=== PATIENT | female | born 1965 | race Caucasian/White ===

== ENCOUNTER 2022-05-22 10:22 | Outpatient (CLI) | payer OTHER, SELFPAY ==
[2022-05-22 17:41] LABS: Chloride* 108 mmol/L (96-114)
[2022-05-22 17:42] LABS: Potassium* 4.5 mmol/L (3.6-5.1); Sodium* 137 mmol/L (135-149)
[2022-05-22 17:44] LABS: Cholesterol* 208 mg/dL (90-199); Creatinine* 0.9 mg/dL (0.5-1.5); Estimated Glomerular Filt Rate 73.64
[2022-05-22 17:45] LABS: Blood Urea Nitrogen* 24 mg/dL (7-30); Calcium* 9.5 mg/dL (8.4-10.6); Carbon Dioxide* 24 mmol/L (20-32); Glucose* 127 mg/dL (60-115); Triglycerides* 203 mg/dL (40-149)
[2022-05-22 17:46] LABS: HDL Cholesterol* 49 mg/dL (>=50); LDL Cholesterol Calculated 118 mg/dL (<100)
== END 2022-05-22 10:23 | disposition home or self-care (01) ==
PROVIDERS: PCP Family Medicine; Visit Provider Family Medicine
DX: E11.9 Type 2 diabetes mellitus without complications (principal); I10 Essential (primary) hypertension; E55.9 Vitamin D deficiency, unspecified; K21.9 Gastro-esophageal reflux disease without esophagitis
CPT/HCPCS: 80048; 80061

== ENCOUNTER 2022-07-29 08:00 | Outpatient (CLI) | payer OTHER, SELFPAY ==
--- OUTSIDE RECORDS SUMMARY | 2022-07-29 08:10 | XMS_ITS | Clinical Summary ---
:1965 Author Organization [employer] 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 LORazepam (ATIVAN) 0.5 TAKE ONE TABLET 30 tablet 0 07/02/2018 Active mg tabIndications: BY MOUTH EVERY 6 Wheezing HOURS IF NEEDED FOR ANXIETY cholecalciferol, Take 1 tablet by 0 08/10/2020 Active Vitamin D3, 5,000 unit mouth once daily. tab tablet albuterol HFA 90 Inhale 1-2 Puffs 1 Inhaler 11 08/10/2020 Active mcg/actuation by mouth every 4 inhalerIndications: hours if needed. Seasonal allergies furosemide (LASIX) 40 Take 0.5 tablets 45 tablet 3 08/10/2020 Active mg tabletIndications: by mouth every Hypertension morning. lisinopril-hydrochloro Take 0.5 tablets 45 tablet 3 08/10/2020 Active thiazide, 20-25 mg, by mouth once (PRINZIDE, ZESTORETIC) daily. 20-25 mg per tabletIndications: Hypertension Apple Cider Vinegar Take by mouth. 0 11/17/2020 Active 600 mg cap metFORMIN (GLUCOPHAGE) Take 2 tablets by 120 tablet 0 12/28/19 21 Active 500 mg mouth 2 times tabletIndications: daily with meals. Controlled type 2 diabetes mellitus without complication, without long-term current use of insulin (HC) Active Problems Problem Noted Date Controlled type 2 diabetes mellitus without complicati on, without 08/21/2020 long-term current use of insulin Loss of voice 09/08/2014 Bilateral pneumonia 09/05/2014 Wheezing 09/05/2014 ACL (anterior cruciate ligament) tear 10/19/2013 Menorrhagia 08/27/2013 Venous insufficiency 07/30/2012 Raynaud's phenomenon 07/30/2012 Vitamin D deficiency 05/05/2011 Hypertension 04/30/2010 ALLERGIC RHINITIS GERD Migraine, unspecified, without mention of intractable migraine without mention of status migrainosus Obsessive-compulsive disorders Encounters Date Type Specialty Care Team Description 05/20/2022 Refill Leyla Rush NP Refill Request (metFORMIN (GLUCOPHAGE) 50 0 mg tablet) from Last 3 Months Immunizations Name Administration Dates Next Due Tdap 04/25/2009 Family History Medical History Relation Name Comments Diabetes Brother Diabetes Maternal Grandfather Heart Disease Maternal Grandfather Hypertension Maternal Grandfather Cancer-breast Maternal Grandmother Diabetes Mother Heart Disease Mother Hypertension Mother Relation Name Status Comments Brother Father Maternal Grandfather Maternal Grandmother Mother Social History Tobacco Use Types Packs/Day Years Used Date Former Smoker Quit: 02/04/20 11 Smokeless Tobacco: Never Used Tobacco Cessation: Counseling Given: Yes Alcohol Use Standard Drinks/Week Comments Yes 0 (1 standard drink = 0.6 oz pure social , one time every three months alcohol) Alcohol Habits Answer Date Recorded How often do you have a drink 2-4 times a month 06/10/2019 containing alcohol? How many drinks containing alcohol do 1 or 2 you have on a typical day when you are drinking? How often do you have six or more Never 2018 drinks on one occasion? Comment: social, one time every three 09/05/2014 months Sex Assigned at Date Recorded Not on file Obstetrics History Last Filed Vital Signs Vital Sign Reading Time Taken Comments Blood Pressure 127/79 11/17/2020 1:09 PM SAMPLE SELECTOR Pulse 89 11/17/2020 1:09 PM SAMPLE SELECTOR Temperature 36.9 ??C (98.4 ??F) 11/17/2020 1:09 PM SAMPLE SELECTOR Respiratory Rate 16 11/17/2020 1:09 PM SAMPLE SELECTOR Oxygen Saturation 99% 11/17/2020 1:09 PM SAMPLE SELECTOR Inhaled Oxygen Concentration - - Weight 88.9 kg (196 lb) 11/17/2020 1:09 PM SAMPLE SELECTOR Height 158.8 cm (5' 2.5) 08/10/2020 8:43 AM CDT Body Mass Index 35.28 08/10/2020 8:43 AM CDT Plan of Treatment Health Maintenance Due Date Last Done Comments COVID-19 vaccine series (#1) 1965 Pneumococcal series for age 19-64 1969 (1 - PCV) Colonoscopy through age 75 02/10/2008 Zoster (shingles) series for age 0402/09/2013 50+ (1 of 2) Mammogram for age 45-75 06/28/2016 06/28/2015, 05/19/2014, 05/07/2013, Additional history exists Tetanus booster 04/25/2019 04/25/2009 Depression screening for age 12+ 06/10/2020 06/10/2019, BMI (ht and wt on same day) for 08/10/2021 08/10/2020, 08/0 11/2018, age 18+ 08/01/2017 Influenza for age 50-64 07/11/2022 Lipids for age 45-75 08/01/2022 08/01/2017, 06/28/2015, 05/25/2014, Additional history exists Pap test for age 21-65 08/10/2023 08/10/2020, 05/20/2013, 04/27/2010, Additional history exists Tdap Completed 04/25/2009 Hepatitis C screening for age Completed 05/25/2014 18-79 Results Not on filefrom Last 3 Months Insurance Payer Benefit Plan / Subscriber ID Effective Dates Phone Addre ss Type Group [employer] [id number] 2020-Present [address] [place] [address] [employer] OF [id number] 2014-Present [address] [place] [address] (Home) [place] [phone] (Work) [place] Motor Vehicle Self 1965 [address] (Home) [place] [id number] [place] Personal/Family Self [address] (Home) [place] [phone] (Work) Advance Directives Documents on File Type Date Recorded Patient [employer] Operator Explanati on Healthcare Directive 09/11/2021 09/11/2021 Latest Code Status on File Code Status Date Activated Date Inactivated Comments Full Code 09/05/2014 8:47 AM 09/08/2014 2:52 PM Care Teams Assistant Professor Of Philosophy Relationship Specialty Start Date End Date Unknown, Doctor PCP - General 05/28/22 .
--- NOTE | 2022-07-29 08:15 | CRLHL7_ITS ---
For Patients: As a result of the Century Cures Act, medical imaging exams and procedure reports are released immediately into your electronic medical record. You may view this report before your referring provider. If you have questions, please contact your health care provider. BILATERAL SCREENING MAMMOGRAM WITH COMPUTER-AIDED DETECTION TECHNIQUE: CC and MLO views were obtained. These mammographic images have been obtained using full-field digital technique. These mammographic images were interpreted with the benefit of computer-aided detection. COMPARISON FILM: 06/28/15, 05/19/14. FINDINGS: There are scattered areas of fibroglandular density IMPRESSION: There is no radiographic evidence for malignancy. ASSESSMENT: BI-RADS Category 1: Negative RECOMMENDATION: Routine screening mammogram in 1 year. A lay language report of this examination will be provided to the patient. Dominguez Pardo M.D. Diagnostic Radiologist [email or web address] ZACK/Dictated by: Dominguez Pardo MD @ 07/30/2022 8:52:00 AM (Electronically Signed)
== END 2022-07-29 08:01 | disposition home or self-care (01) ==
LOC: MAMMO 08:01
PROVIDERS: PCP Family Medicine; Visit Provider Family Medicine
DX: Z12.31 Encounter for screening mammogram for malignant neoplasm of breast (principal)
CPT/HCPCS: 77067

== ENCOUNTER 2024-03-01 13:27 | Outpatient (CLI) | payer OTHER, SELFPAY ==
--- NOTE | 2024-03-01 13:20 | MM_ITS ---
Patient: HARRY CARSON Facility:?[facility] Patient ID:?[id number] Site Patient ID:?[id number]. Site :?1965 Study:?XRay-Breast Bilateral 3D W/CAD-03/01/2024 2:14:21 PM Ordering Physician:Lea Ghosh Final Report: BILATERAL SCREENING MAMMOGRAM WITH COMPUTER-AIDED DETECTION AND TOMOSYNTHESIS TECHNIQUE: CC and MLO views were obtained. These mammographic images have been obtained using full-field digital technique. These mammographic images were interpreted with the benefit of computer-aided detection. Breast tomosynthesis was used in this interpretation. COMPARISON FILM: 07/29/22, 06/28/15, 05/19/14. FINDINGS: There are scattered areas of fibroglandular density. IMPRESSION: There is no radiographic evidence for malignancy. ASSESSMENT: BI-RADS Category 1: Negative RECOMMENDATION: Routine screening mammogram in 1 year. A lay language report of this examination will be provided to the patient. LEA RYAN M.D. Diagnostic Radiologist [email or web address] EUSEBIO/celia D& Transcribed: 2:[address]/Dictated by: Lea Ryan MD @ 03/02/2024 12:29:00 PM Signed by:?Lea Ryan MD @03/02/2024 9:34:33 PM (Electronic Signature)
--- OUTSIDE RECORDS SUMMARY | 2024-03-01 13:30 | XMS_ITS | Clinical Summary ---
Author Name Unknown Organization [employer] [facility] [facility] Address [place], [place] [address] Care Team Providers Care Manager Transfer Name Role Phone Unknown, Doctor Primary Care Provider Unavailabl e Allergies Active Allergy Reactions Criticality Noted Date Comments Adhesive Rash 08/25/2013 Phenylbutazone Rash 02/03/2007 Venom-Honey Bee Anaphylaxis High 03/05/2012 Allergic all bees wasps and hornets Medications Medication Sig Dispensed Refills Start Date End Date Status cetirizine (ZYRTEC) 10 mg tablet Take 1 tablet by mouth once daily. 0 06/28/2015 Active LORazepam (ATIVAN) 0.5 mg tabIndications:Wheez ing TAKE ONE TABLET BY MOUTH EVERY 6 HOURS IF NEEDED FOR ANXIETY 30 tablet 07/02/2018 Active cholecalciferol, Vitamin D3, 5,000 unit tab tablet Take 1 tablet by mouth once daily. 0 08/10/2020 Active albuterol HFA 90 mcg/actuation inhalerIndications:S easonal allergies Inhale 1-2 Puffs by mouth every 4 hours if needed. 1 Inhaler 11 08/10/2020 Active furosemide (LASIX) 40 mg tabletIndications:Hy pertension Take 0.5 tablets by mouth every morning. 45 tablet 3 08/10/2020 Active lisinopril-hydrochlo rothiazide, 20-25 mg, (PRINZIDE, ZESTORETIC) 20-25 mg per tabletIndications:Hy pertension Take 0.5 tablets by mouth once daily. 45 tablet 3 08/10/2020 Active Apple Cider Vinegar 600 mg cap Take by mouth. 0 11/17/2020 Active metFORMIN (GLUCOPHAGE) 500 mg tabletIndications:Co ntrolled type 2 diabetes mellitus without complication, without long-term current use of insulin (HC) Take 2 tablets by mouth 2 times daily with meals. 120 tablet 12/28/2020 Active Active Problems Problem Noted Date Diagnosed Date Controlled type 2 diabetes m ellitus without complication, without long-term current use of insulin 08/21/2020 Loss of voice 09/08/2014 Bilateral pneumonia 09/05/2014 Wheezing 09/05/2014 ACL (anterior cruciate ligament) tear 10/19/2013 Menorrhagia 08/27/2013 Venous insufficiency 07/30/2012 Raynaud's phenomenon 07/30/2012 Vitamin D deficiency 05/05/2011 Hypertension 04/30/2010 ALLERGIC RHINITIS GERD Migraine, unspecified, witho ut mention of intractable migraine without mention of status migrainosus Obsessive-compulsive disorders Immunizations Name Administration Dates Next Due Tdap 04/25/2009 Family History Medical History Relation Name Comments Diabetes Brother Diabetes Maternal Grandfather Heart Disease Maternal Grandfather Hypertension Maternal Grandfather Cancer-breast Maternal Grandmother Diabetes Mother Heart Disease Mother Hypertension Mother Relation Name Status Comments Brother Father Maternal Grandfather Maternal Grandmother Mother Social History Tobacco Use Types Packs/Day Years Used Date Smoking Tobacco: Former Cigarettes Q uit: 02/03/2011 Smokeless Tobacco: Never Tobacco Cessation:Counseling Given: Yes Alcohol Use Standard Drinks/Week Comments Yes 0 (1 standard drink = 0.6 oz pure alcohol) social, one time every three months PHQ-2 Answer Date Recorded PHQ-2 Score 0 06/10/2019 Social Connections Answer Date Recorded Frequency of Communication with Friends and Fami ly Not on file 11/10/2021 Financial Resource Strain Answer Date R ecorded Difficulty of Paying Living Expenses Not on file 11/10/2021 Difficulty of Paying Living Expenses Not on file 11/10/2021 Sex and Gender Information Value Date Recorded Sex Assigned at Not on file Gender Identity Not on file Sexual Orientation Not on file Obstetrics History Last Filed Vital Signs Vital Sign Reading Time Taken Comments Blood Pressure 127/79 11/17/2020 1:09 PM ENTERPRISE BUSINESS ARCHITECT Pulse 89 11/17/2020 1:09 PM ENTERPRISE BUSINESS ARCHITECT Temperature 36.9 ??C (98.4 ??F) 11/17/2020 1:09 PM CS T Respiratory Rate 16 11/17/2020 1:09 PM ENTERPRISE BUSINESS ARCHITECT Oxygen Saturation 99% 11/17/2020 1:09 PM ENTERPRISE BUSINESS ARCHITECT Inhaled Oxygen Concentration - - Weight 88.9 kg (196 lb) 11/17/2020 1:09 PM ENTERPRISE BUSINESS ARCHITECT Height 158.8 cm (5' 2.5) 08/10/2020 8:43 AM CDT Body Mass Index 35.28 08/10/2020 8:43 AM CDT Plan of Treatment Health Maintenance Due Date Last Done Comments HIV for age 15-65 1978 Colonoscopy through age 75 02/10/2008 Zoster (shingles) series for age 50+ (1 of 2) 2013 Mammogram for age 45-75 06/28/2016 06/28/20 15, 05/19/2014, 05/07/2013, Additional history exists Tetanus booster 04/25/2019 04/25/2009 Depression screening for age 12+ 06/10/2020 06/10/2019, 08/01/2017 BMI (ht and wt on same day) for age 18+ 08/10/2021 08/10/2020, 06/10/2019, 08/01/2017 Lipids for age 45-75 08/01/2022 08/01/2017, 06/28/2015, 05/25/2014, Additional history exists COVID-19 vaccine series (2022-24 season) 2023 Influenza for age 50-64 07/11/2024 Pap test for age 21-65 11/19/2025 3, 08/10/2020, 05/20/2013, Additional history exists Tdap Completed 04/25/2009 Hepatitis C screening for age 18-79 Completed 05/25/2014 Pneumococcal series for age 6-64 Aged Out No longer eligible based on patient's age to complete this topic Procedures Procedure Name Priority Date/Time Associated Diagnosis Comments CUSTOMER RELATIONS COORDINATOR THIN PREP PAP SCREEN IMAGED Routine 11/19/2022 8:15 AM ENTERPRISE BUSINESS ARCHITECT LIPID PANEL W REFLEX MEASURED LDL Routine 08/01/2017 10:36 AM CDT Hypertension XR MAMMO BILAT SCREEN FFDM (IA) Routine 06/28/2015 9:01 AM CDT Other screening mammogram ANTI HCV Routine 05/25/2014 10:22 AM CDT Need for hepatitis C screening test from Last 3 Months or Most Recently Relevant to Health Maintenance Results * CUSTOMER RELATIONS COORDINATOR THIN PREP PAP SCREEN IMAGED (11/19/2022 8:15 AM ENTERPRISE BUSINESS ARCHITECT) Case Report Gynecologic Cytology Report ? Case: [id number] ? Authorizing Provider: ??Dominguez Mcmillan MD ??Collected: ? 11/19/2022 0815 ? Ordering Location: ? [facility] ?Received: ?11/21/2022 1627 ? First Screen: ?Sisi Sommers ? Specimen: ?CUSTOMER RELATIONS COORDINATOR ThinPrep Vial Screening, Cervical/Vaginal ? 11/28/2022 2:04 PM ENTERPRISE BUSINESS ARCHITECT [facility] INTERPRETATION/ RESULT NEGATIVE FOR INTRAEPITHELIAL LESION OR MALIGNANCY (NIL) (none) 11/28/2022 2:04 PM ENTERPRISE BUSINESS ARCHITECT [id number] IMEN ADEQUACY Satisfactory for evaluation No endocervical component seen 11/28/2022 2:04 PM ENTERPRISE BUSINESS ARCHITECT [facility] HPV REQUEST HPV if ASCUS 11/28/2022 2:04 PM ENTERPRISE BUSINESS ARCHITECT [facility] Last Pap Result NIL 3 2:04 PM [facility] Menstrual Status Postmenopausal 11/28/2022 2:04 PM ENTERPRISE BUSINESS ARCHITECT [facility] Additional Information 11/28/2022 2:04 PM [facility] Comment: Interpreted at [facility] - [address] [place] [id number] Automated Review Successful 11/28/2022 2:[address] [facility] Comment:Specimen processed s uccessfully by automated pastry decorator device, ThinPrep Imaging System, [employer] Note The pap test is a screening technique, not a diagnostic procedure. It is used primarily to screen for squamous cancers and precursor lesions. Published studies have shown that it is subject to both false negative and false positive results. The pap test should not be used as the sole means to diagnose or exclude pre-malignant and malignant lesions. 11/28/2022 2:[address] [facility] Other (Cervical/Vagina l) 11/19/2022 8:15 AM ENTERPRISE BUSINESS ARCHITECT 11/21/2022 4:27 PM ENTERPRISE BUSINESS ARCHITECT Dominguez Mcmillan MD PATHOLOGY/[facility] [address] [place] [address], [place] * (ABNORMAL) LIPID PANEL W REFLEX MEASURED LDL (08/01/2017 10:36 AM CDT) CHOLESTEROL,TOTAL 228(H) 100 - 199 mg/dL 08/01/2017 11:43 AM CDT [facility] TRIGLYCERIDES 245(H) <150 mg/dL 08/01/2017 11:43 AM CDT [facility] HDL CHOLESTEROL 43 >40 mg/dL 7 11:43 AM CDT [facility] NON-HDL CHOLESTEROL 185(H) <145 mg/dl 08/01/2017 11:43 AM CDT [facility] CHOL/HDL RATIO 5.30(H) <4.50 08/01/2017 11:43 AM CDT [facility] LDL CHOLESTEROL 136(H) <=130 mg/dL 08/01/2017 11:43 AM CDT [facility] PROVIDER ORDERED STATUS RANDOM 08/01/2017 11:43 AM CDT [facility] Blood BLOOD SPECIMEN / Unknown Venipuncture / Unknown 08/01/2017 10:36 AM CDT 08/01/2017 10:36 AM CDT Dominguez Mcmillan MD CHEMISTRY [facility] [address] [place] [address] * XR MAMMO BILAT SCREEN FFDM (06/28/2015 9:01 AM CDT) Anatomical Region Laterality Modality BREASTS, Breast Left, Breast Right Bilateral Mammography Impressions 06/28/2015 11:35 AM CDT ??There is no radiographic evidence for malignancy. ??Recommend annual mammograms. A lay language report of this examination will be provided to the patient. MAMMOGRAM ASSESSMENT: ??ACR 1 Negative Narrative 06/28/2015 11:35 AM CDT XR MAMMO BILAT SCREEN FFDM [G0202.0] CLINICAL HISTORY: ??This is an asymptomatic 50 y.o. patient. INDICATION FOR EXAM: Mammogram Screening. TECHNIQUE: CC & MLO views were obtained. ??This digital study was evaluated with the assistance of Computer-Aided Detection. COMPARISON FILM: Yes 05/19/14 [facility] FINDINGS: ??Mammographically, the breast tissue has scattered fibroglandular densities. ??There are no dominant masses, suspicious micro calcifications or areas of architectural distortion. Dominguez Mcmillan MD MAMMO * ANTI HCV [07487.2] (05/25/2014 10:22 AM CDT) HEPATITIS C ANTIBODY Non-Reacti ve Non-Reacti ve 05/25/2014 8:14 PM CDT [facility] Blood specimen (specimen) BLOOD SPECIMEN / Unknown Venipuncture / Unknown 05/25/2014 10:22 AM CDT 05/25/2014 10:22 AM CDT Narrative [facility] - 05/25/2014 8:14 PM CDT Antibodies to HCV not detected; does not exclude the possibility of exposure to HCV. Dominguez Mcmillan MD SEND OUTS [facility] LAB[facility]ORY [address] [place] [address], from Last 3 Months or Most Recently Relevant to Health Maintenance Advance Directives Documents on File Type Date Recorded Patient Macroeconomics Professor Expl anation Healthcare Directive 09/11/2021 021 * Full Code (Latest Code Status on File) Date Activated Date Inactivated Comments 09/05/2014 8:47 AM 09/08/2014 2:52 PM Care Teams Manager Transfer Relationship Specialty Start Date End Date Unknown, Doctor . PCP - General 05/28/22
== END 2024-03-01 13:28 | disposition home or self-care (01) ==
LOC: MAMMO 13:28
PROVIDERS: PCP Family Medicine; Visit Provider Family Medicine
DX: Z12.31 Encounter for screening mammogram for malignant neoplasm of breast (principal); E11.9 Type 2 diabetes mellitus without complications; I10 Essential (primary) hypertension; E55.9 Vitamin D deficiency, unspecified; Z79.4 Long term (current) use of insulin
CPT/HCPCS: 77063; 77067; 80048; 80061; 82306; 85025

== ENCOUNTER 2025-03-16 08:29 | Outpatient (CLI) | payer OTHER, SELFPAY | END 2025-03-16 08:30 | disposition home or self-care (01) | LOC: FBOREF 08:29 | PROVIDERS: PCP Family Medicine; Visit Provider Family Medicine | DX: E11.42 Type 2 diabetes mellitus with diabetic polyneuropathy (principal); I10 Essential (primary) hypertension; Z79.84 Long term (current) use of oral hypoglycemic drugs | CPT/HCPCS: 80061 ==

== ENCOUNTER 2025-04-26 13:48 | Outpatient (CLI) | payer OTHER, SELFPAY ==
--- NOTE | 2025-04-26 14:00 | CRLHL7_ITS ---
For Patients: As a result of the Century Cures Act, medical imaging exams and procedure reports are released immediately into your electronic medical record. You may view this report before your referring provider. If you have questions, please contact your health care provider. INDICATION: BILATERAL SCREENING MAMMOGRAM, ASYMPTOMATIC 60 Y/O FEMALE COMPARISON: 03/01/2024, 07/29/2022, 06/28/2015 TECHNIQUE: Digital mammogram in CC and MLO projections including computer-aided detection (CAD) and tomosynthesis. BREAST COMPOSITION: There are scattered areas of fibroglandular density. FINDINGS: No suspicious findings. ASSESSMENT: BI-RADS 1 Negative RECOMMENDATION: Annual screening mammogram. A lay language report of this examination will be provided to the patient. Dictated by: Dominguez Pardo MD @ 04/27/2025 10:15:41 (Electronically Signed)
== END 2025-04-26 13:49 | disposition home or self-care (01) ==
LOC: MAMMO 13:49
PROVIDERS: PCP Family Medicine; Visit Provider Family Medicine
DX: Z12.31 Encounter for screening mammogram for malignant neoplasm of breast (principal)
CPT/HCPCS: 77063; 77067

== ENCOUNTER 2025-07-14 13:03 | Outpatient (CLI) | payer OTHER, SELFPAY ==
--- NOTE | 2025-07-14 13:30 | CRLHL7_ITS ---
For Patients: As a result of the Century Cures Act, medical imaging exams and procedure reports are released immediately into your electronic medical record. You may view this report before your referring provider. If you have questions, please contact your health care provider. DXA BONE MINERAL DENSITY STUDY Reason for exam: Menopausal and female climacteric states. Current height (in): 61. Weight (lb): 186. Menopause age: 50. Ethnicity: White. 1. Have you had a previous hip or vertebral fracture? No. 2. Have you had any fractures during your adult life which did not result from significant trauma (e.g., auto accident)? No. 3. Did either of your parents have a hip fracture? No. 4. Do you smoke? No. 5. Have you ever taken Glucocorticoids? Yes. 6. Do you have rheumatoid arthritis? No. 7. Do you have secondary osteoporosis? No. 8. Do you drink 3 or more alcoholic drinks per day? No. 9. Are you being treated for osteoporosis? No. 10. Have you ever taken any of the following medications: Actonel, Evista, Fosamax, Miacalcin, Reclast, Boniva, Forteo, HRT (i.e. estrogen/hormone therapy), Protelos, Prolia, Vitamin D, Calcium, other ??? please specify. ANSWER: Yes, calcium. 11. Do you have any of the following medical conditions: Anorexia or bulimia, asthma or emphysema, end stage renal disease, hyperparathyroidism, any seizure disorders, cancer, inflammatory bowel diseases, hysterectomy, other ??? please specify. ANSWER: No. 12. What was your maximum height (inches)? 61.5. 13. Do you perform weight bearing exercise regularly? No. 14. Do you regularly consume dairy products? No. 15. Do you drink caffeinated beverages? Yes. 16. At what age did your period start? 13. 17. Are you premenopausal? No. 18. How many full-term pregnancies have you had? 1. 19. Have you ever missed your period for more than 6 months in a row (not including or menopause)? No. TECHNIQUE: Bone mineral density study was performed using the [employer]. FINDINGS: The results of the study expressed as bone mineral density (BMD) are as follows: Lumbar spine L1 to L4: BMD: 1.007 g/cm2. T-score: -0.4. Z-score: 1.2. Neck Left: BMD: 0.761 g/cm2. T-score: -0.8. Z-score: 0.6. Right: BMD: 0.894 g/cm2. T-score: 0.4. Z-score: 1.8. Total Left: BMD: 0.963 g/cm2. T-score: 0.2. Z-score: 1.2. Right: BMD: 1.087 g/cm2. T-score: 1.2. Z-score: 2.3. IMPRESSION: Normal bone density. *Comparison exams done prior to 04/2020 were performed on different unit, AMX. COMPARISON: Compared with scan of 07/14/2025, the bone mineral density has decreased by 3.0 percent at the spine. Dominguez Pardo M.D. Diagnostic Radiologist [email or web address] EUSEBIO/[email or web address] nelson/Dictated by: Dominguez Pardo MD @ 07/15/2025 8:57:00 AM (Electronically Signed)
== END 2025-07-14 13:04 | disposition home or self-care (01) ==
LOC: RAD 13:06
PROVIDERS: PCP Family Medicine; Visit Provider Family Medicine
DX: N95.1 Menopausal and female climacteric states (principal)
CPT/HCPCS: 77080

== ENCOUNTER 2025-10-03 10:17 | Outpatient (CLI) | payer OTHER, SELFPAY | END 2025-10-03 10:18 | disposition home or self-care (01) | PROVIDERS: PCP Family Medicine; Visit Provider Family Medicine | DX: E11.9 Type 2 diabetes mellitus without complications (principal); E78.2 Mixed hyperlipidemia; I10 Essential (primary) hypertension | CPT/HCPCS: 80048; 80061; 82043; 82570; 84460 ==